=== PATIENT | female | born 1990 | race Caucasian/White ===

== ENCOUNTER 2025-05-22 22:41 | Emergency (ER) | payer MEDICAID ==
[~2025-05-22] VITALS: Ht 160 cm; Wt 55.0 kg
[2025-05-22 22:46] VITALS: O2SAT 97
[2025-05-23] MEDS: LORAZEPAM 0.5MG TABLET PO ONE
[2025-05-23 00:58] LABS: BASOPHILS % 0.9 % (0.0-2.0); EOSINOPHILS % 0.5 % (0.0-5.0); HEMATOCRIT. 40.3 % (36.0-48.0); HEMOGLOBIN. 13.5 g/dL (12.0-16.0); LYMPHOCYTES % 18.0 % (20.0-50.0); MEAN PLATELET VOLUME 7.9 fl (7.4-10.4); MONOCYTES % 5.0 % (2.0-8.0); NEUTROPHILS % 75.6 % (40.0-76.0); PLATELET 411 x1000/uL (130-400); RED BLOOD CELL COUNT 4.57 mill/uL (4.2-5.4); RED CELL DISTRIBUTION WIDTH 12.7 % (11.6-14.6)
[2025-05-23 01:11] LABS: CREATININE 0.7 mg/dL (0.6-1.0); UREA NITROGEN BLOOD 8 mg/dL (9-23)
[2025-05-23 01:32] LABS: HCG SCREEN NEGATIVE
[2025-05-23 01:36] VITALS: BP 118/65; PULSE 88; RESP 20; TEMP 36.9; O2SAT 100
== END 2025-05-23 01:40 | disposition home or self-care (01) ==
LOC: ER 22:50
DX: F41.9 Anxiety disorder, unspecified (principal); R51.9 Headache, unspecified; Z79.899 Other long term (current) drug therapy
CPT/HCPCS: 36415; 71045; 80048; 81025; 84703; 85025; 93005; 99285